=== PATIENT | male | born 1980 | race Hispanic/Latino ===

== ENCOUNTER 2017-04-17 22:38 | Emergency (ER) | payer BC ==
[2017-04-17 22:49] VITALS: RESP 18; TEMP 98; O2SAT 99
--- NOTE | 2017-04-17 23:31 | ED PDOC ---
HPI: Headache <Levar Jasmine - Last Filed: 04/18/17 04:25> Chief Complaint (Provider): headache History Per: Patient History/Exam Limitations: no limitations Onset/Duration Of Symptoms: Hrs (2.5) Current Symptoms Are (Timing): Better Quality: Other (throbbing) Associated Symptoms: Nausea Additional History Per: Patient Additional Complaint(s): 36 y/o male presents for evaluation of frontal headache x 2.5 hours. Patient states he was walking home when headache presented; states it was the worse headache he ever had, 8.5/10. Assocaited nausea. Patient states he took two advil tablets at that time and now notes headache to be nearly resolved. Denies fever, dizziness, extremity numbness/weakness, vision changes, chest pain , shortness of breath, palpitations, abdominal pain. <Lucia Ramos - Last Filed: 04/18/17 05:12> Time Seen by Provider: 04/17/17 23:01 Chief Complaint (Nursing): Headache Past Medical History Vital Signs: Last Vital Signs Temp 98.0 F 04/17/17 22:46 Pulse 63 04/17/17 22:46 Resp 18 04/17/17 22:46 BP 151/94 H 04/17/17 22:46 Pulse Ox 99 04/18/17 02:48 <Levar Jasmine - Last Filed: 04/18/17 04:25> Reviewed: Historical Data, Nursing Documentation, Vital Signs Vital Signs: Last Vital Signs Temp 98.0 F 04/17/17 22:46 Pulse 63 04/17/17 22:46 Resp 18 04/17/17 22:46 BP 151/94 H 04/17/17 22:46 Pulse Ox 99 04/17/17 22:46 - Medical History PMH: No Chronic Diseases - Surgical History Surgical History: Tonsillectomy - Family History Family History: States: No Known Family Hx <Lucia Ramos - Last Filed: 04/18/17 05:12> - Allergies Allergies/Adverse Reactions: Allergies Allergy/AdvReac Type Severity Reaction Status Date / Time codeine Allergy VOMITING Verified 04/17/17 22:45 Review of Systems ROS Statement: Except As Marked, All Systems Reviewed And Found Negative Neurological: Positive for: Headache <Lucia Ramos - Last Filed: 04/18/17 05:12> Physical Exam - Reviewed Nursing Documentation Reviewed: Yes Vital Signs Reviewed: Yes - Physical Exam Appears: Positive for: Well, Non-toxic, No Acute Distress Head Exam: Positive for: ATRAUMATIC, NORMAL INSPECTION, NORMOCEPHALIC Skin: Positive for: Normal Color Eye Exam: Positive for: Normal appearance, EOMI, PERRL ENT: Positive for: Normal ENT Inspection Cardiovascular/Chest: Positive for: Regular Rate, Rhythm Respiratory: Positive for: Normal Breath Sounds Gastrointestinal/Abdominal: Positive for: Normal Exam Back: Positive for: Normal Inspection Extremity: Positive for: Normal ROM Neurologic/Psych: Positive for: Alert, Oriented. Negative for: Motor/Sensory Deficits <Lucia Ramos - Last Filed: 04/18/17 05:12> - Laboratory Results Result Diagrams: 04/17/17 23:55 04/17/17 23:55 <Levar Jasmine - Last Filed: 04/18/17 04:25> - Laboratory Results Result Diagrams: 04/17/17 23:55 04/17/17 23:55 - ECG O2 Sat by Pulse Oximetry: 99 - Progress ED Course And Treament: labs, CT head EXAM: CT Head Without Intravenous Contrast CLINICAL HISTORY: 36 years old, male; Pain; Headache; Other: Frontal; Additional info: Head sent phy. Doc. TECHNIQUE: Axial computed tomography images of the head/brain without intravenous contrast. All CT scans at this facility use one or more dose reduction techniques, viz.: automated exposure control; ma/kV adjustment per patient size (including targeted exams where dose is matched to indication; i.e. head); or iterative reconstruction technique. Coronal and sagittal reformatted images were created and reviewed. COMPARISON: No relevant prior studies available. FINDINGS: Brain: No intracranial hemorrhage. No mass. Few scattered foci of decreased attenuation within periventricular/subcortical white matter. 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 No definite edema. Ventricles: No hydrocephalus. Bones/joints: No acute fracture. Soft tissues: Scalp calcifications. Sinuses: Scattered minimal mucosal thickening. Mastoid air cells: No mastoid effusion. Orbits: Unremarkable as visualized. IMPRESSION: 1. Nonspecific white matter changes. Acute infarction may be CT occult within first 24 hours. If a focal deficit persists, consider followup CT or MRI for further evaluation. 2. Incidental/non-acute findings are described above. Patient evaluated by ED attending Dr. Jasmine; recommended LP to rule out SAH due to nature of headache described Consent obtained Procedure performed by Dr. Jasmine On re-eval, patient resting comfortably, no headache. 5:00 Patient educated on CSF results; discharged with instructions to follow up PMD/ neuro 2-3 days. Return precautions given <Lucia Ramos - Last Filed: 04/18/17 05:12> Disposition <Levar Jasmine - Last Filed: 04/18/17 04:25> - Patient ED Disposition Is Patient to be Admitted: No Counseled Patient/Family Regarding: Studies Performed, Diagnosis, Need For Followup - Disposition Disposition: Routine/Home Disposition Time: 01:49 <uLcia Ramos - Last Filed: 04/18/17 05:12> - Clinical Impression Clinical Impression: Headache - Disposition Referrals: Cecil Gutierrez MD [Primary Care Provider] - Cy Kern MD [Medical Doctor] - Anthony Gifford MD [Medical Doctor] - Phani Snyder MD [Staff Provider] - Condition: IMPROVED Instructions: Headache, Adult (DC) Forms: [employer] ([place]) - Lumbar Puncture Procedure LP Procedure: Discussed Procedure W/Pt, Consent Form Completed, Head CT Completed, Use Of Sterile Technique, Injection Site Prepped W/Betadine Position for Procedure: Right Lateral Injection Location: L 4-5 <Levar Jasmine - Last Filed: 04/18/17 04:25>
[2017-04-18] LABS: BASO # 0.1 K/uL (0.0-0.2); BASO % 1.1 % (0.0-2.0); EOS # 0.1 K/uL (0.0-0.7); EOS % 1.8 % (0.0-4.0); HEMOGLOBIN 14.3 g/dL (12.0-18.0); LYMPH # 1.6 K/uL (1.0-4.3); LYMPH % 29.6 % (20.0-40.0); MEAN CELL VOLUME 93.2 fl (80.0-94.0); MEAN CORPUSCULAR HEMOGLOBIN 31.7 pg (27.0-31.0); MEAN PLATELET VOLUME 8.9 fl (7.2-11.7); MONO # 0.4 K/uL (0.0-0.8); MONO % 7.8 % (0.0-10.0); NEUT # 3.1 K/uL (1.8-7.0); NEUT % 59.7 % (50.0-75.0); RBC 4.5 Mil/uL (4.40-5.90); RED CELL DISTRIBUTION WIDTH 13.6 % (11.5-14.5); WHITE BLOOD COUNT 5.3 K/uL (4.8-10.8)
[2017-04-18 00:07] LABS: ALB/GLOB RATIO 1.7 (1.0-2.1); ALBUMIN 4.8 g/dL (3.5-5.0); ALT/SGPT 63 U/L (21-72); AST/SGOT 37 U/L (17-59); BLOOD UREA NITROGEN 15 mg/dl (9-20); GFR AFRICAN-AMERICAN > 60; GFR NON-AFRICAN AMERICAN > 60
--- NOTE | 2017-04-18 00:37 | CT ---
EXAM: CT Head Without Intravenous Contrast CLINICAL HISTORY: 36 years old, male; Pain; Headache; Other: Frontal; Additional info: Head sent phy. Doc. TECHNIQUE: Axial computed tomography images of the head/brain without intravenous contrast. All CT scans at this facility use one or more dose reduction techniques, viz.: automated exposure control; ma/kV adjustment per patient size (including targeted exams where dose is matched to indication; i.e. head); or iterative reconstruction technique. Coronal and sagittal reformatted images were created and reviewed. COMPARISON: No relevant prior studies available. FINDINGS: Brain: No intracranial hemorrhage. No mass. Few scattered foci of decreased attenuation within periventricular/subcortical white matter. 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 No definite edema. Ventricles: No hydrocephalus. Bones/joints: No acute fracture. Soft tissues: Scalp calcifications. Sinuses: Scattered minimal mucosal thickening. Mastoid air cells: No mastoid effusion. Orbits: Unremarkable as visualized. IMPRESSION: 1. Nonspecific white matter changes. Acute infarction may be CT occult within first 24 hours. If a focal deficit persists, consider followup CT or MRI for further evaluation. 2. Incidental/non-acute findings are described above.
[2017-04-18] MEDS ORDERED: Lidocaine 1% Inj (20ml) ONE (02:04)
[2017-04-18] MEDS: Lidocaine 1% Inj (20ml) IJ STA (02:27)
[2017-04-18] MEDS: Lidocaine/Epi 1% 1:100000 20 ML IJ ONE (02:27)
[2017-04-18 03:17] LABS: FLUID TYPE SPINAL FLUID
[2017-04-18 03:25] LABS: CSF APPEARANCE CLEAR/COLORLESS (CLEAR); CSF VOLUME 1 mL (0-1)
[2017-04-18 04:53] LABS: CSF MONO/MACROPHAGE 0 % (0-0)
[2017-04-18 05:19] VITALS: BP 135/73; PULSE 80
== END 2017-04-18 05:19 | disposition home or self-care (01) ==
LOC: H.ER 22:38
DX: R51 Headache (principal); R11.0 Nausea